=== PATIENT | male | born 1990 | race Caucasian/White ===

== ENCOUNTER 2016-06-07 13:16 | Emergency (ER) | payer MEDICAID ==
--- NOTE | 2016-06-07 14:35 | EDM.PDOC ---
ED HPI LOWER BACK PAIN/INJURY - General Chief Complaint: Back Pain or Injury Stated Complaint: back pain Time Seen by Provider: 06/07/16 14:10 Source of Information: Reports: Patient History Limitations: Reports: No limitations - History of Present Illness INITIAL COMMENTS - FREE TEXT/NARRATIVE: History of present illness: [25-year-old male presenting with acute on chronic back pain. Patient has been working with his PCP to address his chronic pain issues and management. Patient was prescribed physical therapy after the first appointment he had as he describes a debilitating increase in pain to the point that he can't move. He indicated he felt no benefit in fact he feels worse. Patient is coming in today for some relief of this pain in his lower back on the left with radiculopathy down the left leg.] Review of systems: As per history of present illness and below otherwise all systems reviewed and negative. Past medical history: As per history of present illness and as reviewed below otherwise noncontributory. Surgical history: As per history of present illness and as reviewed below otherwise noncontributory. Social history: No reported history of drug or alcohol abuse. Family history: As per history of present illness and as reviewed below otherwise noncontributory. Physical exam: HEENT: Atraumatic, normocephalic, pupils reactive, negative for conjunctival pallor or scleral icterus, mucous membranes moist, throat clear, neck supple, nontender, trachea midline. Lungs: Clear to auscultation, breath sounds equal bilaterally, chest nontender. Heart: S1S2, regular, negative for clicks, rubs, or JVD. Abdomen: Soft, nondistended, nontender. Negative for masses or hepatosplenomegaly. Negative for costovertebral tenderness. Pelvis: Stable nontender. Genitourinary: Deferred. Rectal: Deferred. Extremities: Atraumatic, negative for cords or calf pain. Neurovascular unremarkable. Neuro: Awake, alert, oriented. Cranial nerves II through XII unremarkable. Cerebellum unremarkable. Motor and sensory unremarkable throughout. Exam nonfocal. Patient's: Assessment is benign he does have guarding on ambulation and he does subjectively indicate he has pain and radiculopathy but there is no measurable weakness in range of motion and or basic neuro exam. Diagnostics: [] Therapeutics: [] Impression: [Chronic low back pain] Plan: [Neurontin return to PCP] Definitive disposition and diagnosis as appropriate pending reevaluation and review of above. - Related Data Allergies/ADRs: Allergies Allergy/AdvReac Type Severity Reaction Status Date / Time No Known Allergies Allergy Verified 04/17/16 07:58 Home Meds: Home Meds Ibuprofen [Motrin] 800 mg PO ASDIRECTED 04/17/16 [History] Gabapentin [Neurontin] 300 mg PO BID #60 capsule 06/07/16 [Rx] Past Medical History - Past Health History Medical/Surgical History: Denies Medical/Surgical History HEENT History: Reports: Impaired vision Cardiovascular History: Reports: None Respiratory History: Reports: None Gastrointestinal History: Reports: Other (see below) Other Gastrointestinal History: acid reflux Genitourinary History: Reports: None Psychiatric History: Reports: None Endocrine/Metabolic History: Reports: None - Infectious Disease History Infectious Disease History: Reports: None - Past Surgical History HEENT Surgical History: Reports: Adenoidectomy, Tonsillectomy Musculoskeletal Surgical History: Reports: Other (see below) Other Musculoskeletal Surgeries/Procedures:: ACL surgery right Social & Family History - Family History Family Medical History: Noncontributory - Tobacco Use Smoking Status *Q: Current Every Day Smoker Years of Tobacco use: 4 Packs/Tins Daily: 0.5 - Recreational Drug Use Recreational Drug Use: No ED ROS GENERAL - Review of Systems Review Of Systems: See Below (See history of present illness) ED EXAM,LOWER BACK PAIN/INJURY - Physical Exam Exam: See Below (See history of present illness) Departure - Departure Time of Disposition: 14:37 Disposition: Home, Self-Care 01 Condition: good Clinical Impression: Back pain Qualifiers: Back pain location: low back pain Chronicity: chronic Back pain laterality: left Sciatica presence: with sciatica Sciatica laterality: sciatica of left side Qualified Code(s): M54.42 - Lumbago with sciatica, left side; G89.29 - Other chronic pain Prescriptions: Gabapentin [Neurontin] 300 mg PO BID #60 capsule Forms: ED Department Discharge Additional Instructions: The following information is given to patients seen in the emergency department who are being discharged to home. This information is to outline your options for follow-up care. We provide all patients seen in our emergency department with a follow-up referral. The need for follow-up, as well as the timing and circumstances, are variable depending upon the specifics of your emergency department visit. If you don't have a primary care physician on staff, we will provide you with a referral. We always advise you to contact your personal physician following an emergency department visit to inform them of the circumstance of the visit and for follow-up with them and/or the need for any referrals to a consulting specialist. The emergency department will also refer you to a specialist when appropriate. This referral assures that you have the opportunity for follow-up care with a specialist. All of these measure are taken in an effort to provide you with optimal care, which includes your follow-up. Under all circumstances we always encourage you to contact your private physician who remains a resource for coordinating your care. When calling for follow-up care, please make the office aware that this follow-up is from your recent emergency room visit. If for any reason you are refused follow-up, please contact the [facility] Emergency Department at and asked to speak to the emergency department charge nurse. Followup with your PCP as discussed You've been given a brief run of medicine for the neuropathic and nerve pain you described Return to ED as needed as discussed
[2016-06-07 15:14] VITALS: BP 112/64
== END 2016-06-07 15:13 | disposition home or self-care (01) ==
LOC: MW.ED 13:16
DX: M54.42 Lumbago with sciatica, left side (principal); G89.29 Other chronic pain; F17.210 Nicotine dependence, cigarettes, uncomplicated; Z98.890 Other specified postprocedural states
CPT/HCPCS: 99282; 99283

== ENCOUNTER → 2016-06-17 | Outpatient (CLI) | payer MEDICAID ==
--- NOTE | 2016-06-19 15:23 | MR ---
EXAM DATE: 06/17/16 PATIENT'S AGE: 25 Patient: MARCO DUARTE Facility: [place], [place] Site Site : [id number] Study: MRI Spine Lumbar [id number] 4:51:26 PM Ordering Physician: RENE POOL MD Final Report: INDICATION: Low back pain. TECHNIQUE: Noncontrast sagittal and axial T1, T2, and sagittal STIR sequences are provided. No comparisons. FINDINGS: The overall stature, alignment and intrinsic marrow signal of the lumbar spine is within normal limits. Conus is normal. L5-S1: There is a bilobed lateral recess disc herniation. The right side is slightly larger than the left and extends 3 millimeters beyond the posterior vertebral body margin while that on the left extends 2 millimeters beyond the vertebral body margin. There is compression of the traversing right S1 nerve root. Associated endplate osteophyte and facet arthropathy results in mild bilateral foraminal narrowing with no central canal narrowing. Remainder of the lumbar spine is unremarkable, specifically no evidence suspicious central canal or foraminal narrowing. IMPRESSION: 1. Bilobed disc herniation L5-S1 extending into the lateral recesses, right more so than left. There is compression of the traversing right S1 nerve root. 2. Mild bilateral L5-S1 foraminal narrowing. 3. Otherwise, unremarkable MRI of the lumbar spine. Dictated by Chaparro Camejo MD @ Jun 19 2016 2:33PM (Electronic Signature) Report Signed by Proxy. RYLAN
== END ==
LOC: MW.MRI 16:05
PROVIDERS: ATTEND Family Medicine
DX: M51.27 Other intervertebral disc displacement, lumbosacral region (principal); M48.07 Spinal stenosis, lumbosacral region; M54.5 Low back pain
CPT/HCPCS: 72148; 72148-26

== ENCOUNTER 2016-08-24 10:12 | Emergency (ER) | payer MEDICAID ==
[2016-08-24] MEDS ORDERED: Benzocaine 20% Topical Spray UD MUCMEM ONE (10:25)
[2016-08-24] MEDS ORDERED: Lidocaine 2% Viscous Solution 15 ML Cup PO ONE (10:25)
[2016-08-24 10:27] VITALS: BP 147/81
--- NOTE | 2016-08-24 10:33 | EDM.PDOC ---
ED HPI GENERAL MEDICAL PROBLEM - General Chief Complaint: ENT Problem Stated Complaint: TOOTHACHE Time Seen by Provider: 08/24/16 10:20 Source of Information: Reports: Patient History Limitations: Reports: No Limitations - History of Present Illness INITIAL COMMENTS - FREE TEXT/NARRATIVE: History of present illness: [25-year-old male returns with complaint of wisdom tooth issues. Patient was seen in this ER for the same issue where he had attempted an extraction via a local dentist and had subsequent issues with infection and pain. Patient indicates he is going for follow-up for further removal of tooth remnants and shards but now he continues to have oral pain and indicates dentist told him he needed to be on antibiotics prior to further oral work.] Review of systems: As per history of present illness and below otherwise all systems reviewed and negative. Past medical history: As per history of present illness and as reviewed below otherwise noncontributory. Surgical history: As per history of present illness and as reviewed below otherwise noncontributory. Social history: No reported history of drug or alcohol abuse. Family history: As per history of present illness and as reviewed below otherwise noncontributory. Physical exam: HEENT: Atraumatic, normocephalic, pupils reactive, negative for conjunctival pallor or scleral icterus, mucous membranes moist, throat clear, neck supple, nontender, trachea midline. Lungs: Clear to auscultation, breath sounds equal bilaterally, chest nontender. Heart: S1S2, regular, negative for clicks, rubs, or JVD. Abdomen: Soft, nondistended, nontender. Negative for masses or hepatosplenomegaly. Negative for costovertebral tenderness. Pelvis: Stable nontender. Genitourinary: Deferred. Rectal: Deferred. Extremities: Atraumatic, negative for cords or calf pain. Neurovascular unremarkable. Neuro: Awake, alert, oriented. Cranial nerves II through XII unremarkable. Cerebellum unremarkable. Motor and sensory unremarkable throughout. Exam nonfocal. Slight swelling noted at base of 32 which could be consistent with the beginning of a new abscess Diagnostics: [] Therapeutics: [] Impression: [Dental abscess, fractured tooth] Plan: [Antibiotic brief run of pain medicine] Definitive disposition and diagnosis as appropriate pending reevaluation and review of above. - Related Data Allergies Allergy/AdvReac Type Severity Reaction Status Date / Time No Known Allergies Allergy Verified 08/24/16 10:27 Home Meds: Home Meds . [No Known Home Meds] 08/24/16 [History] Past Medical History - Past Health History Medical/Surgical History: Denies Medical/Surgical History HEENT History: Reports: Impaired Vision Cardiovascular History: Reports: None Respiratory History: Reports: None Gastrointestinal History: Reports: Other (See Below) Other Gastrointestinal History: acid reflux Genitourinary History: Reports: None Psychiatric History: Reports: None Endocrine/Metabolic History: Reports: None - Infectious Disease History Infectious Disease History: Reports: None - Past Surgical History Musculoskeletal Surgical History: Reports: Other (See Below) Social & Family History - Family History Family Medical History: Noncontributory - Tobacco Use Smoking Status *Q: Current Every Day Smoker Years of Tobacco use: 7 Packs/Tins Daily: 0.5 - Recreational Drug Use Recreational Drug Use: No ED ROS ENT - Review of Systems Review Of Systems: See Below (See history of present illness) ED EXAM, ENT - Physical Exam Exam: See Below (See history of present illness) Course - Orders/Labs/Meds Meds: Medications Discontinued Medications Generic Name Dose Route Start Last Admin Trade Name Freq PRN Reason Stop Dose Admin Benzocaine 2 each 08/24/16 10:25 Hurricaine One 20% MUCMEM 08/24/16 10:26 ONETIME ONE Lidocaine HCl 15 ml 08/24/16 10:25 Xylocaine 2% Viscous PO 08/24/16 10:26 ONETIME ONE Departure - Departure Time of Disposition: 10:36 Disposition: Home, Self-Care 01 Condition: Good Clinical Impression: Fracture of tooth - Discharge Information Forms: ED Department Discharge Additional Instructions: The following information is given to patients seen in the emergency department who are being discharged to home. This information is to outline your options for follow-up care. We provide all patients seen in our emergency department with a follow-up referral. The need for follow-up, as well as the timing and circumstances, are variable depending upon the specifics of your emergency department visit. If you don't have a primary care physician on staff, we will provide you with a referral. We always advise you to contact your personal physician following an emergency department visit to inform them of the circumstance of the visit and for follow-up with them and/or the need for any referrals to a consulting specialist. The emergency department will also refer you to a specialist when appropriate. This referral assures that you have the opportunity for follow-up care with a specialist. All of these measure are taken in an effort to provide you with optimal care, which includes your follow-up. Under all circumstances we always encourage you to contact your private physician who remains a resource for coordinating your care. When calling for follow-up care, please make the office aware that this follow-up is from your recent emergency room visit. If for any reason you are refused follow-up, please contact the [facility] Emergency Department at and asked to speak to the emergency department charge nurse. Take medication as directed Follow-up with dentist as discussed VALE Return to ED as needed as discussed
== END 2016-08-24 10:59 | disposition home or self-care (01) ==
LOC: MW.ED 10:12
DX: K04.7 Periapical abscess without sinus (principal); K03.81 Cracked tooth; F17.210 Nicotine dependence, cigarettes, uncomplicated
CPT/HCPCS: 99282; A9270

== ENCOUNTER 2023-03-10 08:53 | Emergency (ER) | payer SELFPAY ==
[2023-03-10 10:42] VITALS: BP 135/76; PULSE 77
== END 2023-03-10 10:42 | disposition home or self-care (01) ==
LOC: MW.ED 08:53
DX: L73.9 Follicular disorder, unspecified (principal); Z86.16 Personal history of COVID-19
CPT/HCPCS: 99283

== ENCOUNTER 2023-03-16 07:42 | Emergency (ER) | payer BC ==
[2023-03-16] MEDS ORDERED: Sodium Chloride 0.9% 1,000 ML IV ONE (09:00)
[2023-03-16] MEDS ORDERED: fentaNYL 50 MCG/ML SDV IVPUSH ONE (09:00)
[2023-03-16] MEDS ORDERED: Sodium Chloride 0.9% 10 ML Syringe FLUSH PRN (09:00)
[2023-03-16] MEDS ORDERED: Clindamycin Phosphate in D5W 600 MG in Premix Bag 1 BAG IV ONE ×2 (09:00)
[2023-03-16] MEDS ORDERED: Sodium Chloride 0.9% 2.5 ML Syringe FLUSH PRN (09:00)
[2023-03-16 09:40] LABS: HEMATOCRIT 43.3 % (42.0-52.0); HEMOGLOBIN 15.5 g/dL (14.0-18.0); IMMATURE GRAN ABSOLUTE AUTO 0.03 K/uL (0.00-0.05); IMMATURE GRAN PERCENT AUTO 0.5 % (0.0-0.4); LYMPHOCYTES ABSOLUTE AUTO 1.68 K/uL (1.00-4.80); LYMPHOCYTES PERCENT AUTO 27.3 % (24.0-44.0); MEAN CORPUSCULAR HEMOGLOBIN 30.2 pg (28.0-32.0); MEAN CORPUSCULAR HGB CONC 35.8 g/dL (32.0-36.0); MEAN CORPUSCULAR VOLUME 84.2 fL (83.0-99.0); MEAN PLATELET VOLUME 9.7 fL (9.4-12.4); MONOCYTES ABSOLUTE AUTO 0.44 K/uL (0.00-0.80); MONOCYTES PERCENT AUTO 7.2 % (0.0-8.0); PLATELET COUNT,PLT 268 K/uL (150-400); RED BLOOD CELL COUNT 5.14 M/uL (4.52-5.90); WHITE BLOOD CELL COUNT,WBC 6.15 K/uL (3.9-11.3)
[2023-03-16 10:13] LABS: A/G RATIO 1.2 (0.9-1.6); ALBUMIN 3.8 g/dL (3.4-5.0); BILIRUBIN TOTAL 0.6 mg/dL (0.2-1.0); CARBON DIOXIDE,CO2 26.9 mmol/L (21.0-32.0); CREATININE 1.1 mg/dL (0.8-1.3); EST CRCL DRUG DOSING (CG) 110.02 mL/min; POTASSIUM,K 4.3 mmol/L (3.5-5.1)
[2023-03-16 20:05] VITALS: BP 123/63; PULSE 78
== END 2023-03-16 10:40 | disposition home or self-care (01) ==
LOC: MW.ED 07:42
DX: L02.11 Cutaneous abscess of neck (principal); Z79.899 Other long term (current) drug therapy; Z86.16 Personal history of COVID-19
CPT/HCPCS: 10061; 36415; 80053; 85025; 96365; 96375; 99283; J0736; J3010; J3490; J7030; 10060; 99284